=== PATIENT | male | born 1990 | race Hispanic/Latino ===

== ENCOUNTER → 2023-11-21 | Outpatient (CLI) | payer OTHER | END | disposition home or self-care (01) | LOC: RAH 10:03 | PROVIDERS: ATTEND Chiropractor | DX: M46.96 Unspecified inflammatory spondylopathy, lumbar region (principal); M46.94 Unspecified inflammatory spondylopathy, thoracic region | CPT/HCPCS: 72070; 72100 ==

== ENCOUNTER → 2023-12-16 | Outpatient (CLI) | payer OTHER | END | disposition home or self-care (01) | LOC: RAH 10:07 | PROVIDERS: ATTEND Chiropractor | DX: M13.811 Other specified arthritis, right shoulder (principal) | CPT/HCPCS: 73030 ==